=== PATIENT | female | born 1935 | race Caucasian/White ===

== ENCOUNTER 2020-08-30 22:50 | Inpatient (IN) | payer MEDICARE, OTHER ==
[~2020-08-30] VITALS: Ht 154.9 cm; Wt 86.4 kg
[2020-08-31 01:00] VITALS: BP 144/89
[2020-08-31] MEDS ORDERED: MAG HYDROX/AL HYDROX/SIMETH 30 ML UDC PO PRN (01:00)
[2020-08-31] MEDS ORDERED: MORPHINE SULFATE INJ 2 MG/ML DISP.SYRIN IV PRN (01:00)
[2020-08-31] MEDS ORDERED: Z GUARD REMEDY 2 OZ OINT TP PRN (01:00)
[2020-08-31] MEDS ORDERED: DEXTROSE 50%-WATER 50 ML DISP.SYRIN IV PRN (01:00)
[2020-08-31] MEDS ORDERED: ZOLPIDEM TARTRATE 5 MG TABLET PO PRN (01:00)
[2020-08-31] MEDS ORDERED: ONDANSETRON HCL/PF 4 MG/2 ML VIAL IVP PRN (01:00)
[2020-08-31] MEDS ORDERED: HYDROCODONE/APAP 5/325MG TABLET PO PRN (01:00)
[2020-08-31] MEDS ORDERED: ACETAMINOPHEN 325 MG TABLET PO PRN (01:00)
[2020-08-31] MEDS ORDERED: MAGNESIUM HYDROXIDE 30 ML UDC PO PRN (01:00)
--- NOTE | 2020-08-31 01:14 | NUR ---
PATIENT CAME FROM [facility]. BROUGHT BY THE AMBULANCE. PATIENT IS A/O X4. ON O2 AT 3L/MIN NASAL CANNULA. CALL LIGHT WITHIN REAch, instructed to call when OOB AND IF SHE NEEDED HELP, PATIENT VERBALIZED UNDERSTANDING. BED IN LOWEST AND LOCKED POSITION. BED ALARM ON. NO S/S OF DISTRESS NOTED. NO COMPLAIN OF PAIN.
--- NOTE | 2020-08-31 01:19 | NUR ---
PATIENT CAME AT 0054.
[2020-08-31] MEDS ORDERED: APIX2.5T PO (01:50)
[2020-08-31] MEDS ORDERED: HYDR-4303 PO (01:50)
[2020-08-31] MEDS ORDERED: AMIO200T5 PO (01:50)
[2020-08-31] MEDS ORDERED: FURO-144 PO (01:50)
[2020-08-31] MEDS ORDERED: ATOR40TA PO (01:50)
[2020-08-31] MEDS ORDERED: OLME1TAB19 PO (01:50)
[2020-08-31] MEDS ORDERED: EMPA25TA PO (01:50)
[2020-08-31] MEDS ORDERED: SACU1TAB PO (01:50)
[2020-08-31] MEDS ORDERED: METO25TA4 PO (01:50)
[2020-08-31 04:00] VITALS: BP_SYST 127; BP_SYST 144; BP_DIAS 61; BP_DIAS 89
[2020-08-31] MEDS: BLOOD SUGAR DIAGNOSTIC 1 EACH STRIP IN SCH ×4 (06:18→22:00)
--- NOTE | 2020-08-31 06:18 | NUR ---
blood sugar [id number], no insulin given.
--- NOTE | 2020-08-31 07:25 | NUR ---
RN OPENING NOTE PATIENT RECEIVED IN BED RESTING IN RIGHT LATERAL POSITION. PATIENT DENIES PAIN OR DISCOMFORT AT THIS TIME. RIGHT HAND #22 G PATENT AND INTACT. SAFETY PRECAUTIONS IMPLEMENTED, BED LOCKED IN LOWEST POSITION, SIDE RAILS UP X2, CALL LIGHT WITHIN REACH, BED ALARMS ON. WILL CONTINUE TO MONITOR AND PROVIDE CARE THROUGHOUT SHIFT.
[2020-08-31 08:00] VITALS: BP 110/60
[2020-08-31] MEDS ORDERED: CEFTRIAXONE 1 G in IV D5W 50 ML IV SCH (09:00)
[2020-08-31] MEDS ORDERED: FUROSEMIDE 40 MG/4 ML VIAL IV SCH (09:00)
[2020-08-31] MEDS: FUROSEMIDE 40 MG/4 ML VIAL IV SCH ×3 (10:30→18:17)
[2020-08-31] MEDS: APIXABAN 2.5 MG TABLET PO SCH ×2 (10:30→16:46)
[2020-08-31] MEDS: METOPROLOL SUCCINATE 25 MG TAB.SR.24H PO SCH (10:30)
[2020-08-31] MEDS ORDERED: ATORVASTATIN 40 MG TABLET PO SCH (10:30)
[2020-08-31] MEDS: AMIODARONE HCL 200 MG TABLET PO SCH (10:30)
--- NOTE | 2020-08-31 11:01 | NUR ---
Lasix 1030 am dose not administered because 9:00 am dose was give. Spoke with pharmacy and recommended to hold 1030 dose.
[2020-08-31 11:19] LABS: BASOPHILS % (AUTO) 0.7 % (0.0-2.0); EOSINOPHILS % (AUTO) 1.8 % (0.0-6.0); HEMATOCRIT 39 % (33-45); HEMOGLOBIN 12.5 g/dL (11.5-14.8); LYMPHOCYTES # (AUTO) 1.2 /CMM (0.8-4.8); LYMPHOCYTES % (AUTO) 17.3 % (20.0-44.0); MEAN CORPUSCULAR HGB CONC 32 g/dl (31.0-36.0); MEAN CORPUSCULAR VOLUME 87 fL (82-100); MONOCYTES # (AUTO) 0.6 /CMM (0.1-1.30); MONOCYTES % (AUTO) 7.9 % (2.0-12.0); NEUTROPHILS # (AUTO) 5.1 /CMM (1.8-8.9); NEUTROPHILS % (AUTO) 72.3 % (43.0-81.0); PLATELET COUNT (AUTO) 202 /CMM (150-450); RED BLOOD CELL COUNT(AUTO) 4.52 MIL/uL (4.0-5.2); WHITE BLOOD COUNT (AUTO) 7.1 K/uL (4.3-11.0)
[2020-08-31 12:00] VITALS: BP 101/54
[2020-08-31 13:03] LABS: CALCIUM, SERUM 9.1 mg/dL (8.5-10.1); CREATININE 1.3 mg/dL (0.6-1.3); POTASSIUM 3.4 mmol/L (3.5-5.1)
[2020-08-31 13:15] LABS: ALBUMIN 3.6 g/dL (3.4-5.0); BILIRUBIN,TOTAL 0.5 mg/dL (0.2-1.0); MAGNESIUM 1.9 mg/dL (1.8-2.4); PHOSPHORUS 4.1 mg/dL (2.5-4.9)
[2020-08-31 16:00] VITALS: BP 94/56
--- NOTE | 2020-08-31 19:10 | NUR ---
RN CLOSING NOTE PATIENT IN BED RESTING IN RIGHT LATERAL POSITION. PATIENT DENIES PAIN OR DISCOMFORT AT THIS TIME. RIGHT HAND #22 G PATENT AND INTACT. SAFETY PRECAUTIONS IMPLEMENTED, BED LOCKED IN LOWEST POSITION, SIDE RAILS UP X2, CALL LIGHT WITHIN REACH, BED ALARMS ON. WILL ENDORSE CARE CONTINUATION OF CARE UPCOMING SHIFT.
[2020-08-31 20:00] VITALS: BP 90/50
[2020-08-31] MEDS: ATORVASTATIN 40 MG TABLET PO SCH (21:28)
[2020-08-31] MEDS: INSULIN REGULAR, HUMAN 100 UNIT/ML 3 ML VIAL SQ PRN (21:34)
[2020-09-01] VITALS: BP 100/49
[2020-09-01 04:00] VITALS: BP 105/56
[2020-09-01 06:34] LABS: BASOPHILS % (AUTO) 0.7 % (0.0-2.0); EOSINOPHILS % (AUTO) 2.1 % (0.0-6.0); HEMATOCRIT 37 % (33-45); HEMOGLOBIN 11.8 g/dL (11.5-14.8); LYMPHOCYTES # (AUTO) 1.8 /CMM (0.8-4.8); LYMPHOCYTES % (AUTO) 28.3 % (20.0-44.0); MEAN CORPUSCULAR HGB CONC 32 g/dl (31.0-36.0); MEAN CORPUSCULAR VOLUME 87 fL (82-100); MONOCYTES # (AUTO) 0.6 /CMM (0.1-1.30); MONOCYTES % (AUTO) 9.9 % (2.0-12.0); NEUTROPHILS # (AUTO) 3.8 /CMM (1.8-8.9); PLATELET COUNT (AUTO) 196 /CMM (150-450); RED BLOOD CELL COUNT(AUTO) 4.22 MIL/uL (4.0-5.2); WHITE BLOOD COUNT (AUTO) 6.4 K/uL (4.3-11.0)
[2020-09-01 07:16] LABS: THYROID STIMULATING HORMONE 5.719 uIU/mL (0.358-3.74)
[2020-09-01 07:28] LABS: ALBUMIN 3.3 g/dL (3.4-5.0); BILIRUBIN,TOTAL 0.5 mg/dL (0.2-1.0); CALCIUM, SERUM 8.9 mg/dL (8.5-10.1); CREATININE 1.2 mg/dL (0.6-1.3); MAGNESIUM 2.1 mg/dL (1.8-2.4); PHOSPHORUS 4.7 mg/dL (2.5-4.9); POTASSIUM 3.1 mmol/L (3.5-5.1); TOTAL PROTEIN, SERUM 6.5 g/dL (6.4-8.2)
[2020-09-01] MEDS: BLOOD SUGAR DIAGNOSTIC 1 EACH STRIP IN SCH ×4 (07:33→21:31)
--- NOTE | 2020-09-01 07:56 | NUR ---
MS/RN OPENING NOTE RECEIVED PATIENT FROM GRINDING ROOM INSPECTOR NURSE. PATIENT IS ASLEEP IN BED, EASILY WOKEN UP. A/O X4, SWEDISH SPEAKING. PATIENT ON OXYGEN 3L/MIN, TOLERATING WELL, NO SOB NOTED, BREATHING EVEN, NON LABORED. SAFETY MEASURES IN PLACE, BED LOCKED AND IN LOWEST POSITION, CALL LIGHT WITHIN REACH. WILL CONTINUE TO MONITOR AND ENSURE SAFETY.
[2020-09-01 08:00] VITALS: BP 127/53
[2020-09-01] MEDS: POTASSIUM CHLORIDE 20 MEQ TAB.PRT.SR PO SCH ×2 (08:28→09:47)
[2020-09-01] MEDS: METOPROLOL SUCCINATE 25 MG TAB.SR.24H PO SCH (08:28)
[2020-09-01] MEDS: AMIODARONE HCL 200 MG TABLET PO SCH (08:29)
[2020-09-01] MEDS: APIXABAN 2.5 MG TABLET PO SCH ×2 (08:31→16:33)
[2020-09-01] MEDS ORDERED: POTASSIUM CHLORIDE 20 MEQ TAB.PRT.SR PO SCH (09:30)
[2020-09-01] MEDS: INSULIN REGULAR, HUMAN 100 UNIT/ML 3 ML VIAL SQ PRN ×2 (12:44→21:42)
[2020-09-01] MEDS: JARDIANCE 25 MG PO SCH (14:38)
[2020-09-01 16:00] VITALS: BP 101/50
[2020-09-01] MEDS: ENTRESTO PO SCH (16:35)
--- NOTE | 2020-09-01 19:22 | NUR ---
MS/RN CLOSING NOTE PATIENT IS ASLEEP IN BED, EASILY WOKEN UP. A/O X4, TOGOLESE SPEAKING. PATIENT ON OXYGEN 3L/MIN, TOLERATING WELL, NO SOB NOTED, BREATHING EVEN, NON LABORED. SAFETY MEASURES IN PLACE, BED LOCKED AND IN LOWEST POSITION, CALL LIGHT WITHIN REACH. ALL NEEDS MET THROUGHOUT THE SHIFT. WILL ENDORSE TO DEPUTY CLERK OF SUPERIOR COURT NURSE.
--- NOTE | 2020-09-01 19:55 | NUR ---
TELE/RN OPENING NOTE RECEIVED PATIENT SITTING UP IN BED WATCHING TV. AWAKE, ALERT AND ORIENTED X 3. ABLE TO MAKE NEEDS KNOWN. NO COMPLAINTS OF PAIN AT THIS TIME. IV ACCESS TO RIGHT HAND INTACT AND PATENT. TELE MONITOR READING AFIB CONTROLLED HR 80. CALL LIGHT WITHIN REACH. ASPIRATION, FALL AND SAFETY PRECAUTIONS MAINTAINED. WILL CONTINUE TO MONITOR.
[2020-09-01 20:00] VITALS: BP 99/57
[2020-09-01] MEDS: ATORVASTATIN 40 MG TABLET PO SCH (21:31)
[2020-09-02] VITALS: BP 116/70
[2020-09-02 04:00] VITALS: BP 119/71
[2020-09-02] MEDS: BLOOD SUGAR DIAGNOSTIC 1 EACH STRIP IN SCH ×4 (06:01→21:46)
--- NOTE | 2020-09-02 06:28 | NUR ---
TELE/RN CLOSING NOTE PATIENT CURRENTLY RESTING IN BED. AWAKE, ALERT AND ORIENTED X 3. ABLE TO MAKE NEEDS KNOWN. NO COMPLAINTS OF PAIN AT THIS TIME. TELE MONITOR READING AFIB 79. CONTINUES ON 3L O2 VIA NC WITH NO SIGNS OR SYMPTOMS OF RESPIRATORY DISTRESS NOTED. EKG AND CXR DONE THIS AM WITH PENDING RESULTS. BLOOD GLUCOSE LEVEL THIS AM WAS 114. CALL LIGHT WITHIN REACH. ASPIRATION, FALL AND SAFETY PRECAUTIONS MAINTAINED. WILL ENDORSE PLAN OF CARE TO ONCOMING SHIFT RN.
[2020-09-02 07:16] LABS: BASOPHILS % (AUTO) 0.7 % (0.0-2.0); EOSINOPHILS % (AUTO) 2.3 % (0.0-6.0); HEMATOCRIT 37 % (33-45); HEMOGLOBIN 11.9 g/dL (11.5-14.8); LYMPHOCYTES # (AUTO) 1.9 /CMM (0.8-4.8); MEAN CORPUSCULAR HGB CONC 32 g/dl (31.0-36.0); MEAN CORPUSCULAR VOLUME 88 fL (82-100); MONOCYTES # (AUTO) 0.6 /CMM (0.1-1.30); MONOCYTES % (AUTO) 9.2 % (2.0-12.0); NEUTROPHILS # (AUTO) 3.8 /CMM (1.8-8.9); NEUTROPHILS % (AUTO) 58.8 % (43.0-81.0); PLATELET COUNT (AUTO) 196 /CMM (150-450); RED BLOOD CELL COUNT(AUTO) 4.25 MIL/uL (4.0-5.2); WHITE BLOOD COUNT (AUTO) 6.5 K/uL (4.3-11.0)
[2020-09-02 07:31] LABS: ALBUMIN 3.4 g/dL (3.4-5.0); BILIRUBIN,TOTAL 0.7 mg/dL (0.2-1.0); CALCIUM, SERUM 9.2 mg/dL (8.5-10.1); MAGNESIUM 2.1 mg/dL (1.8-2.4); PHOSPHORUS 3.9 mg/dL (2.5-4.9); POTASSIUM 3.9 mmol/L (3.5-5.1); TOTAL PROTEIN, SERUM 6.5 g/dL (6.4-8.2)
--- NOTE | 2020-09-02 08:00 | NUR ---
RN OPENING NOTE PT IS AWAKE IN BED SITTING. A/O X3 AND SPEAKS LIMITED MARTINIQUAIS. NO COMPLAINT OF PAIN OR NAUSEA. CURRENTLY ON 3L NC WITH NO RESPIRATORY DISTRESS. O2 SAT >95%. AMBULATORY WITH BATHROOM PRIVILEGES. SKIN IS INTACT. NO EDEMA PRESENT. HL PRESENT ON R HANG 22G. SAFETY MEASURES IN PLACE. SIDE RAILS RAISED. BED LOWERED. CALL LIGHT WITHIN REACH. WILL CONTINUE TO MONITOR.
[2020-09-02 08:09] VITALS: BP 101/60
[2020-09-02] MEDS: AMIODARONE HCL 200 MG TABLET PO SCH (09:00)
[2020-09-02] MEDS: METOPROLOL SUCCINATE 25 MG TAB.SR.24H PO SCH (09:00)
[2020-09-02] MEDS: FUROSEMIDE 100 MG/10 ML VIAL IV SCH ×3 (09:51→17:04)
[2020-09-02] MEDS: ENTRESTO PO SCH ×2 (09:51→17:03)
[2020-09-02] MEDS: APIXABAN 2.5 MG TABLET PO SCH ×2 (10:06→17:13)
[2020-09-02] MEDS: JARDIANCE 25 MG PO SCH ×2 (10:34→17:03)
[2020-09-02] MEDS: INSULIN REGULAR, HUMAN 100 UNIT/ML 3 ML VIAL SQ PRN ×3 (12:25→21:47)
[2020-09-02 16:00] VITALS: BP 109/67
--- NOTE | 2020-09-02 18:48 | NUR ---
RN CLOSING NOTE PT IS AWAKE IN BED SITTING. A/O X3 AND SPEAKS LIMITED VINCENTIAN. NO COMPLAINT OF PAIN OR NAUSEA. CURRENTLY ON 3L NC WITH NO RESPIRATORY DISTRESS. O2 SAT >95%. AMBULATORY WITH BATHROOM PRIVILEGES. SKIN IS INTACT. NO EDEMA PRESENT. HL PRESENT ON R HANG 22G. ROUTINE MEDS GIVEN. SAFETY MEASURES IN PLACE. SIDE RAILS RAISED. BED LOWERED. CALL LIGHT WITHIN REACH. REPORT TO BE GIVEN TO NIGHT NURSE FOR MEGNA.
[2020-09-02 20:00] VITALS: BP 112/79
--- NOTE | 2020-09-02 20:14 | NUR ---
MS RN OPENING NOTE PATIENT SITTING IN CHAIR A/OX3; ABLE TO MAKE NEEDS KNOWN. ON O2 VIA N/C; TOLERATING WELL WITH NO SOB. IV TO RIGHT HAND #22G S/L; PATENT AND INTACT. DENIES ANY PAIN OR DISCOMFORT AT THIS TIME SAFETY MEASURES IN PLACE: BED IN LOWEST LOCKED POSITION, CALL LIGHT WITHIN EASY REACH, SIDE RAILS UP X2, BED ALARMS ON. PATIENT IS CALM AND MEDICALLY STABLE AT THIS TIME. WILL CONTINUE PATIENT'S PLAN OF CARE.
[2020-09-02] MEDS: ATORVASTATIN 40 MG TABLET PO SCH (21:46)
[2020-09-03 07:10] LABS: BASOPHILS % (AUTO) 0.7 % (0.0-2.0); EOSINOPHILS % (AUTO) 2.8 % (0.0-6.0); HEMATOCRIT 39 % (33-45); HEMOGLOBIN 12.6 g/dL (11.5-14.8); LYMPHOCYTES # (AUTO) 1.8 /CMM (0.8-4.8); LYMPHOCYTES % (AUTO) 32.6 % (20.0-44.0); MEAN CORPUSCULAR HGB CONC 32 g/dl (31.0-36.0); MEAN CORPUSCULAR VOLUME 87 fL (82-100); MONOCYTES # (AUTO) 0.5 /CMM (0.1-1.30); MONOCYTES % (AUTO) 8.9 % (2.0-12.0); NEUTROPHILS # (AUTO) 3.1 /CMM (1.8-8.9); PLATELET COUNT (AUTO) 207 /CMM (150-450); RED BLOOD CELL COUNT(AUTO) 4.51 MIL/uL (4.0-5.2); WHITE BLOOD COUNT (AUTO) 5.7 K/uL (4.3-11.0)
[2020-09-03] MEDS: BLOOD SUGAR DIAGNOSTIC 1 EACH STRIP IN SCH ×4 (07:37→22:00)
[2020-09-03] MEDS: INSULIN REGULAR, HUMAN 100 UNIT/ML 3 ML VIAL SQ PRN ×2 (07:37→11:44)
--- NOTE | 2020-09-03 07:38 | NUR ---
MS RN CLOSING NOTE PATIENT SITTING IN CHAIR A/OX3; ABLE TO MAKE NEEDS KNOWN. ON O2 VIA N/C; TOLERATING WELL WITH NO SOB. IV TO RIGHT HAND #22G S/L; PATENT AND INTACT. DENIES ANY PAIN OR DISCOMFORT AT THIS TIME SAFETY MEASURES IN PLACE: BED IN LOWEST LOCKED POSITION, CALL LIGHT WITHIN EASY REACH, SIDE RAILS UP X2, BED ALARMS ON. PATIENT IS CALM AND MEDICALLY STABLE AT THIS TIME. WILL ENDORSE PATIENT'S PLAN OF CARE TO ONCOMING MORNING RN.
--- NOTE | 2020-09-03 07:40 | NUR ---
GPS/RN OPENING NOTES RECEIVED PATIENT IS ON BED AWAKE ALERT AND ORIENTED X4. PATIENT IS ON 3L OXYGEN SATURATION 97%. PATIENT IN APPARENT RESPIRATORY DISTRESS NOTED. NO COMPLAINED OF PAIN AT THIS TIME. WILL CONTINUE TO MONITOR. Addendum: 09/03/20 at 0945 by TREVOR MICHELE RN ERROR
[2020-09-03 07:44] LABS: ALBUMIN 3.5 g/dL (3.4-5.0); BILIRUBIN,TOTAL 0.8 mg/dL (0.2-1.0); CALCIUM, SERUM 9.5 mg/dL (8.5-10.1); MAGNESIUM 2.2 mg/dL (1.8-2.4); PHOSPHORUS 5.1 mg/dL (2.5-4.9); POTASSIUM 3.5 mmol/L (3.5-5.1); TOTAL PROTEIN, SERUM 6.9 g/dL (6.4-8.2)
[2020-09-03 08:19] VITALS: BP 95/58
[2020-09-03] MEDS: APIXABAN 2.5 MG TABLET PO SCH ×2 (08:37→16:59)
[2020-09-03] MEDS: ENTRESTO PO SCH ×2 (08:38→16:57)
[2020-09-03] MEDS: METOPROLOL SUCCINATE 25 MG TAB.SR.24H PO SCH (08:41)
[2020-09-03] MEDS: AMIODARONE HCL 200 MG TABLET PO SCH (08:41)
--- NOTE | 2020-09-03 08:43 | NUR ---
MS/RN NOTES BP95/58 P 73 CORDARONE 200MG 1 TAB PO AND METOPROLOL 25MG 1 ANU PO WAS NOT ADMINISTERED. WILL CONTINUE TO MONITOR.
[2020-09-03] MEDS: POTASSIUM CHLORIDE 20 MEQ TAB.PRT.SR PO SCH ×3 (10:38→12:40)
[2020-09-03] MEDS: FUROSEMIDE 100 MG/10 ML VIAL IV SCH ×3 (10:38→17:45)
--- NOTE | 2020-09-03 10:59 | NUR ---
MS/RN NOTES TITRATE 3L OXYGEN TO 2 L OXYGEN SATURATION 95% PATIENT IN APPARENT RESPIRATORY DISTRESS NOTED. WILL CONTINUE TO MONITOR.
[2020-09-03 16:13] VITALS: BP 108/62
--- NOTE | 2020-09-03 18:50 | NUR ---
MS/R CLOSING NOTES PATIENT IS ON BED AWAKE ALERT AND ORIENTED X4. PATIENT IS ON ROOM AIR SATURATION 97%. PATIENT IN NO APPARENT RESPIRATORY DISTRESS NOTED. NO COMPLAINED OF PAIN NOTED AT THIS TIME. IV ACCESS AT RIGHT HAND # 22 G PATENT AND INTACT. SEEN AND EXAMINED BY MD WITH ORDERS MADE AND CARRIED OUT. ALL DUE MEDICATIONS WAS GIVEN. SAFETY PRECAUTIONS WAS IN PLACED. BED IN LOWEST POSITION AND LOCKED. CALL LIGHT WITH IN REACH. WILL ENDORSED TO TELEVISION DIRECTOR FOR MEGAN.
[2020-09-03 20:31] VITALS: BP 92/41
[2020-09-04] MEDS: ATORVASTATIN 40 MG TABLET PO SCH ×2 (00:46→22:14)
[2020-09-04] MEDS: INSULIN REGULAR, HUMAN 100 UNIT/ML 3 ML VIAL SQ PRN ×4 (00:46→22:13)
[2020-09-04] MEDS: BLOOD SUGAR DIAGNOSTIC 1 EACH STRIP IN SCH ×4 (06:34→22:08)
--- NOTE | 2020-09-04 06:35 | NUR ---
BLOOD SUGAR [id number], NO INSULIN COVERAGE NEEDED.
[2020-09-04 06:51] LABS: BASOPHILS % (AUTO) 0.7 % (0.0-2.0); EOSINOPHILS % (AUTO) 2.7 % (0.0-6.0); HEMATOCRIT 39 % (33-45); HEMOGLOBIN 12.7 g/dL (11.5-14.8); LYMPHOCYTES % (AUTO) 32.9 % (20.0-44.0); MEAN CORPUSCULAR HGB CONC 32 g/dl (31.0-36.0); MEAN CORPUSCULAR VOLUME 86 fL (82-100); MONOCYTES # (AUTO) 0.6 /CMM (0.1-1.30); MONOCYTES % (AUTO) 10.5 % (2.0-12.0); NEUTROPHILS # (AUTO) 3.3 /CMM (1.8-8.9); NEUTROPHILS % (AUTO) 53.2 % (43.0-81.0); PLATELET COUNT (AUTO) 209 /CMM (150-450); RED BLOOD CELL COUNT(AUTO) 4.55 MIL/uL (4.0-5.2); WHITE BLOOD COUNT (AUTO) 6.1 K/uL (4.3-11.0)
--- NOTE | 2020-09-04 07:46 | NUR ---
MS/RN OPENING NOTES RECEIVED PATIENT IS ON BED AWAKE ALERT AND ORIENTED X4. PATIENT IS ON 2L OXYGEN SATURATING WELL. PATIENT IN APPARENT RESPIRATORY DISTRESS NOTED. NO COMPLAINED OF PAIN AT THIS TIME. WILL CONTINUE TO MONITOR.
[2020-09-04 07:52] LABS: ALBUMIN 3.6 g/dL (3.4-5.0); BILIRUBIN,TOTAL 0.8 mg/dL (0.2-1.0); CALCIUM, SERUM 9.6 mg/dL (8.5-10.1); CREATININE 1.1 mg/dL (0.6-1.3); MAGNESIUM 2.2 mg/dL (1.8-2.4); PHOSPHORUS 4.8 mg/dL (2.5-4.9); POTASSIUM 3.4 mmol/L (3.5-5.1)
[2020-09-04 08:00] VITALS: BP 118/70
[2020-09-04] MEDS: JARDIANCE 25 MG PO SCH (08:44)
[2020-09-04] MEDS: ENTRESTO PO SCH ×2 (08:44→16:39)
[2020-09-04] MEDS: AMIODARONE HCL 200 MG TABLET PO SCH (08:45)
[2020-09-04] MEDS: METOPROLOL SUCCINATE 25 MG TAB.SR.24H PO SCH (08:45)
[2020-09-04] MEDS: APIXABAN 2.5 MG TABLET PO SCH ×2 (08:52→16:48)
[2020-09-04] MEDS ORDERED: BUMETANIDE INJ 8 MG in IV NS 0.9% 48 ML IV ONE (10:00)
[2020-09-04] MEDS: POTASSIUM CHLORIDE 20 MEQ TAB.PRT.SR PO SCH ×3 (10:04→12:01)
[2020-09-04 16:00] VITALS: BP 94/56
[2020-09-04 18:00] VITALS: BP 94/56
--- NOTE | 2020-09-04 19:14 | NUR ---
MS/RN CLOSING NOTES PATIENT IS ON BED AWAKE ALERT AND ORIENTED X4. PATIENT IS ON 2L OXYGEN SATURATION 96%. PATIENT IN NO APPARENT RESPIRATORY DISTRESS NOTED. NO COMPLAINED OF PAIN NOTED AT THIS TIME. IV ACCESS AT RIGHT HAND # 22 G PATENT AND INTACT. SEEN AND EXAMINED BY MD WITH ORDERS MADE AND CARRIED OUT. ALL DUE MEDICATIONS WAS GIVEN. SAFETY PRECAUTIONS WAS IN PLACED. BED IN LOWEST POSITION AND LOCKED. CALL LIGHT WITH IN REACH. WILL ENDORSED TO CANNERY WORKER FOR MEGAN.
--- NOTE | 2020-09-04 19:33 | NUR ---
RN NOTES PATIENT IS ON BED AWAKE ALERT AND ORIENTED X4. PATIENT IS ON 2L OXYGEN SATURATION 96%. PATIENT IN NO APPARENT RESPIRATORY DISTRESS NOTED. NO COMPLAINED OF PAIN NOTED AT THIS TIME. IV ACCESS AT RIGHT HAND # 22 G PATENT AND INTACT. SAFETY PRECAUTIONS WAS IN PLACED. BED IN LOWEST POSITION AND LOCKED. CALL LIGHT WITH IN REACH. WILL CONTINUE TO MONITOR.
[2020-09-04 20:00] VITALS: BP 102/60
[2020-09-05] MEDS: INSULIN REGULAR, HUMAN 100 UNIT/ML 3 ML VIAL SQ PRN ×3 (06:46→22:26)
[2020-09-05 06:55] LABS: BASOPHILS % (AUTO) 0.7 % (0.0-2.0); EOSINOPHILS % (AUTO) 2.1 % (0.0-6.0); HEMATOCRIT 43 % (33-45); HEMOGLOBIN 13.6 g/dL (11.5-14.8); LYMPHOCYTES # (AUTO) 2.4 /CMM (0.8-4.8); LYMPHOCYTES % (AUTO) 35.5 % (20.0-44.0); MEAN CORPUSCULAR HGB CONC 32 g/dl (31.0-36.0); MEAN CORPUSCULAR VOLUME 87 fL (82-100); MONOCYTES # (AUTO) 0.7 /CMM (0.1-1.30); MONOCYTES % (AUTO) 10.4 % (2.0-12.0); NEUTROPHILS # (AUTO) 3.4 /CMM (1.8-8.9); NEUTROPHILS % (AUTO) 51.3 % (43.0-81.0); PLATELET COUNT (AUTO) 222 /CMM (150-450); WHITE BLOOD COUNT (AUTO) 6.7 K/uL (4.3-11.0)
--- NOTE | 2020-09-05 06:57 | NUR ---
RN NOTES PATIENT IS ON BED AWAKE ALERT AND ORIENTED X4. PATIENT IS ON 2L OXYGEN SATURATION 96%. PATIENT IN NO APPARENT RESPIRATORY DISTRESS NOTED. NO COMPLAINED OF PAIN NOTED AT THIS TIME. IV ACCESS AT RIGHT HAND # 22 G PATENT AND INTACT. SAFETY PRECAUTIONS WAS IN PLACED. BED IN LOWEST POSITION AND LOCKED. CALL LIGHT WITH IN REACH. WILL ENDORSE CARE TO DAY SHIFT NURSE.
[2020-09-05 07:13] LABS: ALBUMIN 3.7 g/dL (3.4-5.0); BILIRUBIN,TOTAL 0.7 mg/dL (0.2-1.0); CALCIUM, SERUM 9.8 mg/dL (8.5-10.1); CREATININE 1.2 mg/dL (0.6-1.3); MAGNESIUM 2.3 mg/dL (1.8-2.4); POTASSIUM 3.7 mmol/L (3.5-5.1); TOTAL PROTEIN, SERUM 7.3 g/dL (6.4-8.2)
--- NOTE | 2020-09-05 08:04 | NUR ---
MS RN OPENING NOTE PATIENT IS IN BED RESTING, PATIENT IS IN NO ACUTE DISTRESS. PATIENT IS ON 2L OXYGEN ON NC, TOLERATING WELL. NO SOB NOTE. PATIENT IS ON DAILY WEIGHT MEASURES. SAFETY PRECAUTIONS ARE ON, BED IS LOCKED AND IN THE LOWEST POSITION WITH SIDE RAILS UP. CALL LIGHT WITHIN REACH. WILL CONTINUE TO MONITOR CLOSELY THROUGHOUT THE SHIFT.
[2020-09-05] MEDS: BLOOD SUGAR DIAGNOSTIC 1 EACH STRIP IN SCH ×4 (08:55→22:24)
[2020-09-05] MEDS: JARDIANCE 25 MG PO SCH (09:08)
[2020-09-05] MEDS: AMIODARONE HCL 200 MG TABLET PO SCH (09:09)
[2020-09-05] MEDS: ENTRESTO PO SCH ×2 (09:09→17:29)
[2020-09-05] MEDS: METOPROLOL SUCCINATE 25 MG TAB.SR.24H PO SCH (09:10)
[2020-09-05] MEDS: APIXABAN 2.5 MG TABLET PO SCH ×2 (09:11→17:33)
[2020-09-05] MEDS: POTASSIUM CHLORIDE 20 MEQ TAB.PRT.SR PO SCH (10:08)
[2020-09-05] MEDS: FUROSEMIDE 40 MG TABLET PO SCH (10:09)
[2020-09-05] MEDS: CARVEDILOL 6.25 MG TABLET PO SCH ×2 (10:09→21:00)
[2020-09-05] MEDS ORDERED: IV NS 0.9% 250 ML IV ONE (10:50)
[2020-09-05] MEDS ORDERED: CT SWABBABLE VALVE TRANS SET 1 EA INFUS.SET MC ONE (10:50)
[2020-09-05] MEDS ORDERED: IOHEXOL-350 100 ML VIAL IV ONE ×2 (10:50→11:12)
[2020-09-05] MEDS ORDERED: METOPROLOL TARTRATE INJ 5 MG/5 ML AMPUL ONE (10:50)
[2020-09-05] MEDS ORDERED: METOPROLOL TARTRATE 50 MG TABLET PO PRN (11:00)
[2020-09-05] MEDS ORDERED: NITROGLYCERIN 0.4 MG/TAB BOTTLE SL ONE (11:00)
[2020-09-05] MEDS ORDERED: METOPROLOL TARTRATE INJ 5 MG/5 ML AMPUL IVP PRN (12:00)
--- NOTE | 2020-09-05 19:40 | NUR ---
RN NOTES PATIENT IS IN BED RESTING, PATIENT IS IN NO ACUTE DISTRESS. PATIENT IS ON 2L OXYGEN ON NC, TOLERATING WELL. NO SOB NOTE. PATIENT IS ON DAILY WEIGHT MEASURES AND STRICT I&O. SAFETY PRECAUTIONS ARE ON, BED IS LOCKED AND IN THE LOWEST POSITION WITH SIDE RAILS UP. ALL NEEDS AT THIS TIME. CALL LIGHT WITHIN REACH. WILL CONTINUE TO MONITOR CLOSELY THROUGHOUT THE SHIFT.
--- NOTE | 2020-09-05 19:44 | NUR ---
MS RN CLOSING NOTE PATIENT IS IN BED RESTING, PATIENT IS IN NO ACUTE DISTRESS. PATIENT IS ON 2L OXYGEN ON NC, TOLERATING WELL. NO SOB NOTE. PATIENT IS ON DAILY WEIGHT MEASURES. SAFETY PRECAUTIONS ARE ON, BED IS LOCKED AND IN THE LOWEST POSITION WITH SIDE RAILS UP. CALL LIGHT WITHIN REACH. ENDORSE PATIENT TO FILAMENT MAKER NURSE FOR MEGAN.
[2020-09-05 20:00] VITALS: BP 94/49
--- NOTE | 2020-09-05 21:08 | NUR ---
RN NOTES COREG HELD DUE TO LOW SBP 94/58 WILL CONTINUE TO MONITOR.
[2020-09-05] MEDS: ATORVASTATIN 40 MG TABLET PO SCH (22:29)
[2020-09-06] MEDS: BLOOD SUGAR DIAGNOSTIC 1 EACH STRIP IN SCH ×2 (06:31→12:16)
[2020-09-06] MEDS: INSULIN REGULAR, HUMAN 100 UNIT/ML 3 ML VIAL SQ PRN ×2 (06:33→12:28)
--- NOTE | 2020-09-06 07:00 | NUR ---
RN NOTES PATIENT IS IN BED RESTING, PATIENT IS IN NO ACUTE DISTRESS. PATIENT IS ON 2L OXYGEN ON NC, TOLERATING WELL. NO SOB NOTE. PATIENT IS ON DAILY WEIGHT MEASURES AND STRICT I&O. SAFETY PRECAUTIONS ARE ON, BED IS LOCKED AND IN THE LOWEST POSITION WITH SIDE RAILS UP. ALL NEEDS AT THIS TIME. CALL LIGHT WITHIN REACH. WILL ENDORSE CARE TO DAY SHIFT NURSE.
--- NOTE | 2020-09-06 07:38 | NUR ---
MS RN OPENING NOTES RECEIVED PATIENT IN BED, AWAKE. ROMANSH SPEAKING BUT UNDERSTANDS SOME ROMANIAN. NO PAIN OR DISTRESS NOTED. PATIENT IS ON 2L OXYGEN ON NC, TOLERATING WELL. NO SOB NOTED. PATIENT IS ON DAILY WEIGHT MEASURES AND STRICT I&O. SAFETY PRECAUTIONS IMPLEMENTED, BED IS LOCKED AND IN THE LOWEST POSITION, SIDE RAILS X2. CALL LIGHT WITHIN REACH. WILL CONTINUE TO MONITOR.
[2020-09-06 08:00] VITALS: BP 103/58
[2020-09-06] MEDS: METOPROLOL SUCCINATE 25 MG TAB.SR.24H PO SCH (09:00)
[2020-09-06] MEDS: CARVEDILOL 6.25 MG TABLET PO SCH (09:00)
--- NOTE | 2020-09-06 09:17 | NUR ---
RN NOTE HELD COREG AND TOPROL-XL. BP TOO LOW @ 103/58
[2020-09-06 09:18] VITALS: BP 103/58
[2020-09-06] MEDS: JARDIANCE 25 MG PO SCH (09:18)
[2020-09-06] MEDS: FUROSEMIDE 40 MG TABLET PO SCH (09:18)
[2020-09-06] MEDS: AMIODARONE HCL 200 MG TABLET PO SCH (09:18)
[2020-09-06] MEDS: ENTRESTO PO SCH (09:18)
[2020-09-06] MEDS: POTASSIUM CHLORIDE 20 MEQ TAB.PRT.SR PO SCH (09:19)
[2020-09-06] MEDS: APIXABAN 2.5 MG TABLET PO SCH (09:23)
[2020-09-06] MEDS ORDERED: POTA20TA83 PO (11:28)
[2020-09-06] MEDS ORDERED: FURO-144 PO (11:28)
--- NOTE | 2020-09-06 15:53 | NUR ---
BIAS CUTTER NOTES PT DISCHARGED HOME IN STABLE CONDITION TO SON. A/O X4. NO PAIN OR DISTRESS NOTED. IV ACCESS ON R HAND REMOVED, DRY PRESSURE DRESSING APPLIED TO SITE. EDUCATION MATERIALS AND EXITCARE GIVEN TO PT AND VERBALIZED UNDERSTANDING. PT LEFT UNIT VIA WHEELCHAIR ACCOMPANIED BY MYSELF @ 9690. AND CHARGE NURSE AWARE OF DISCHARGE.
== END 2020-09-06 15:38 | disposition home or self-care (01) | DRG 291 ==
LOC: TELE 08-31 00:42 → MED 09-02 08:01
PROVIDERS: ADMIT Nurse Practitioner Acute Care; ATTEND Nurse Practitioner Family
DX: I13.0 Hypertensive heart and chronic kidney disease with heart failure and stage 1 through stage 4 chronic kidney disease, or unspecified chronic kidney disease (principal); I50.23 Acute on chronic systolic (congestive) heart failure; N17.0 Acute kidney failure with tubular necrosis; I48.20 Chronic atrial fibrillation, unspecified; D68.69 Other thrombophilia; I25.10 Atherosclerotic heart disease of native coronary artery without angina pectoris; E03.9 Hypothyroidism, unspecified; E78.5 Hyperlipidemia, unspecified; E87.6 Hypokalemia; Z79.01 Long term (current) use of anticoagulants; Z95.1 Presence of aortocoronary bypass graft; E11.22 Type 2 diabetes mellitus with diabetic chronic kidney disease; N13.9 Obstructive and reflux uropathy, unspecified; E11.65 Type 2 diabetes mellitus with hyperglycemia; E66.01 Morbid (severe) obesity due to excess calories; Z68.36 Body mass index [BMI] 36.0-36.9, adult; I08.0 Rheumatic disorders of both mitral and aortic valves; I27.20 Pulmonary hypertension, unspecified; N18.9 Chronic kidney disease, unspecified; Z79.4 Long term (current) use of insulin
CPT/HCPCS: 36415; 71045-TC; 75574; 80048-TC; 80053-TC; 80061-TC; 82962-TC; 83735-TC; 84100-TC; 84439-TC; 84443-TC; 84484-TC; 85025-TC; 87081-TC; 93307-TC; 94799-TC; G0378; J0696; J1815; J1940; J3490; J7050; J7060; Q9967

== ENCOUNTER 2021-11-23 19:21 | Inpatient (IN) | payer MEDICARE, OTHER ==
[~2021-11-23] VITALS: Ht 149.9 cm; Wt 80.7 kg
[~2021-11-23 19:21] MED LIST: AMIO200T5 PO; APIX2.5T PO; ATOR40TA PO; EMPA25TA PO; FURO-144 PO; HYDR-4303 PO; METO25TA4 PO; OLME1TAB19 PO; POTA20TA83 PO; SACU1TAB PO
--- NOTE | 2021-11-23 19:25 | NUR ---
BIB DAUGHTER FOR C/O WORSENING SOB X 5 DAYS. AMBULATORY, PLACED ON BED, AAOX4, DYSPNEIC RR-28 SATURATING AT 95%. SEEN AND EXAMINED BY DR HUNT.
--- NOTE | 2021-11-23 19:45 | NUR ---
BLOOD DRAWN AND SENT TO LAB
--- NOTE | 2021-11-23 19:51 | NUR ---
INSECT CONTROL INSPECTOR AT PT'S BEDSIDE
[2021-11-23 20:06] LABS: CALCIUM, SERUM 8.8 mg/dL (8.5-10.1); CARBON DIOXIDE 29 mmol/L (21-32); CHLORIDE 105 mmol/L (98-107); CREATININE 1.4 mg/dL (0.6-1.3); GLUCOSE 140 mg/dL (74-106); POTASSIUM 4.9 mmol/L (3.5-5.1); SODIUM SERUM 139 mmol/L (136-145); UREA NITROGEN, BLOOD 22 mg/dL (7-18)
--- NOTE | 2021-11-23 20:18 | NUR ---
SWAB FOR COVID19 SENT TO LAB
[2021-11-23 20:19] LABS: ALANINE AMINOTRANSFERASE 30 U/L (12-78); ALKALINE PHOSPHATASE 59 U/L (46-116); ASPARTATE AMINOTRANSFERASE 34 U/L (15-37); BILIRUBIN,DIRECT 0.2 mg/dL (0.0-0.2); BILIRUBIN,TOTAL 0.5 mg/dL (0.2-1.0); TOTAL PROTEIN, SERUM 7.4 g/dL (6.4-8.2)
[2021-11-23 20:23] LABS: BASOPHILS % (AUTO) 0.9 % (0.0-2.0); EOSINOPHILS % (AUTO) 2.9 % (0.0-6.0); HEMATOCRIT 35 % (33-45); HEMOGLOBIN 11.3 g/dL (11.5-14.8); LYMPHOCYTES % (AUTO) 20.3 % (20.0-44.0); MEAN CORPUSCULAR HGB CONC 33 g/dl (31.0-36.0); MEAN CORPUSCULAR VOLUME 81 fL (82-100); MONOCYTES # (AUTO) 0.4 K/uL (0.1-1.30); MONOCYTES % (AUTO) 8.3 % (2.0-12.0); NEUTROPHILS # (AUTO) 3.3 K/uL (1.8-8.9); NEUTROPHILS % (AUTO) 67.6 % (43.0-81.0); PLATELET COUNT (AUTO) 185 K/uL (150-450); RED BLOOD CELL COUNT(AUTO) 4.27 MIL/uL (4.0-5.2); WHITE BLOOD COUNT (AUTO) 4.8 K/uL (4.3-11.0)
[2021-11-23] MEDS ORDERED: FUROSEMIDE 40 MG/4 ML VIAL ONE (20:29)
[2021-11-23] MEDS ORDERED: FUROSEMIDE 40 MG/4 ML VIAL IV ONE (20:30)
[2021-11-23] MEDS ORDERED: ASPIRIN EC 81 MG TABLET.DR PO ONE ×2 (20:30)
[2021-11-23] MEDS ORDERED: SITA1TAB2 PO (20:40)
[2021-11-23] MEDS ORDERED: METO-357 PO (20:40)
[2021-11-23] MEDS ORDERED: TRAZ-182 PO (20:40)
[2021-11-23] MEDS ORDERED: ASPI-1169 PO (20:40)
[2021-11-23] MEDS ORDERED: MAGN400T8 PO (20:40)
[2021-11-23] MEDS ORDERED: ROSU10TA2 PO (20:40)
[2021-11-23] MEDS ORDERED: SACU1TAB PO (20:40)
[2021-11-23] MEDS ORDERED: SPIR50TA5 PO (20:40)
[2021-11-23] MEDS ORDERED: CLOP75TA15 PO (20:40)
--- NOTE | 2021-11-23 21:05 | NUR ---
PT AMBULATORY TO RESTROOM WITH ASSISTANCE. ADLS DONE.
--- NOTE | 2021-11-23 21:22 | NUR ---
DR. HUNT ON PHONECALL WITH DR. HESS REGARDING ADMISSION
[2021-11-23] MEDS: ASPIRIN 81 MG TAB.CHEW PO SCH (22:00)
[2021-11-23] MEDS ORDERED: SPIRONOLACTONE 25 MG TABLET PO SCH (22:00)
[2021-11-23] MEDS ORDERED: ALBUTEROL FS 2.5 MG/0.5 ML VIAL.NEB NEB PRN (22:00)
[2021-11-23] MEDS ORDERED: *INSULIN REGULAR(HUMULIN R)HUM 100 UNIT/ML VIAL SQ PRN (22:00)
[2021-11-23] MEDS ORDERED: INSULIN REGULAR, HUMAN 100 UNIT/ML 3 ML VIAL SQ PRN (22:00)
[2021-11-23] MEDS ORDERED: MAG HYDROX/AL HYDROX/SIMETH 30 ML UDC PO PRN (22:00)
[2021-11-23] MEDS ORDERED: MORPHINE SULFATE INJ 2 MG/ML DISP.SYRIN IV PRN (22:00)
[2021-11-23] MEDS ORDERED: DEXTROSE 50%-WATER 50 ML DISP.SYRIN IV PRN (22:00)
[2021-11-23] MEDS ORDERED: ONDANSETRON HCL/PF 4 MG/2 ML VIAL IVP PRN (22:00)
[2021-11-23] MEDS ORDERED: Medication Not On Formulary EA (Rosuvastatin Calcium (Crestor) 10 MG) PO SCH (22:00)
--- NOTE | 2021-11-23 22:05 | NUR ---
ASSIGNED TO 113-1 Addendum: 11/23/21 at 2206 by SAMYP ASSIGNED TO 315-1
--- NOTE | 2021-11-23 22:20 | NUR ---
GETACHEW (SON IN [employer]) [phone], TRENA (DAUGHTER) [phone]
--- NOTE | 2021-11-23 22:25 | NUR ---
REPORT GIVEN TO JOESPH RN 315 FOR MEGAN
--- NOTE | 2021-11-23 22:25 | NUR ---
Noble saunders in [facility] - 11/23/21 at 2236 by DAVID REPORT GIVEN TO JOESPH KRUSE MEGAN
--- NOTE | 2021-11-23 22:38 | NUR ---
DR. HESS AT PT'S BEDSIDE
[2021-11-23 22:51] VITALS: BP 151/77
--- NOTE | 2021-11-23 22:51 | NUR ---
RN ADMITTING NOTE PATIENT BROUGHT FROM ER FOR CHF, PATIENT IS A/O X 4 SAMMARINESE SPEAKING. PATIENT IS ABLE TO MAKE NEEDS KNOWN. PATIENT'S TELE MONITOR READS SR 70 WITH 1ST DEGREE BLOCK. PATIENT IS ABLE TO AMBULATE STEADILY WITHOUT ASSISTIVE DEVICE AND ASSISTANCE, ALTHOUGH PATIENT WAS FEELING DIZZY. PATIENT'S SKIN ASSESSED AND SKIN IS INTACT. PATIENT HAS A RAC 20 G SALINE LOCKED ONLY, FLUSHING WELL. PATIENT DOES NOT REPORT ANY PAIN/CHEST PAIN AT THIS TIME. ORIENTED PATIENT TO THE ROOM, RN, MARCY. SAFETY MEASURES IN PLACE: BED LOCKED AND IN LOWEST POSITION, CALL LIGHT WITHIN REACH, SIDE RAILS UP. WILL MONITOR PATIENT CLOSELY.
[2021-11-23] MEDS: BLOOD SUGAR DIAGNOSTIC 1 EACH STRIP VI SCH (23:28)
[2021-11-23] MEDS: TRAZODONE 50 MG TABLET PO SCH (23:28)
[2021-11-23] MEDS: CLOPIDOGREL BISULFATE 75 MG TABLET PO SCH (23:28)
--- NOTE | 2021-11-23 23:50 | NUR ---
RN NOTE BS 84 MG/DL, NO COVERAGE GIVEN. PATIENT GIVEN TWO ORANGE JUICES, WILL MONITOR FOR HYPO/HYPERGLYCEMIA.
[2021-11-24] VITALS: BP 141/78
[2021-11-24] MEDS ORDERED: IPRATROPIUM/ALBUTEROL INHALER IH SCH
[2021-11-24] MEDS: IPRATROPIUM NEB FS 0.5 MG/2.5 ML AMPUL.NEB IH SCH ×4 (01:30→19:49)
[2021-11-24] MEDS: ALBUTEROL FS 2.5 MG/0.5 ML VIAL.NEB NEB SCH ×4 (01:30→19:49)
[2021-11-24 04:00] VITALS: BP 108/62
[2021-11-24 06:28] LABS: BASOPHILS % (AUTO) 0.9 % (0.0-2.0); HEMATOCRIT 30 % (33-45); LYMPHOCYTES # (AUTO) 1.5 K/uL (0.8-4.8); LYMPHOCYTES % (AUTO) 31.6 % (20.0-44.0); MEAN CORPUSCULAR HGB CONC 33 g/dl (31.0-36.0); MEAN CORPUSCULAR VOLUME 82 fL (82-100); MONOCYTES # (AUTO) 0.5 K/uL (0.1-1.30); MONOCYTES % (AUTO) 9.7 % (2.0-12.0); NEUTROPHILS # (AUTO) 2.5 K/uL (1.8-8.9); NEUTROPHILS % (AUTO) 53.8 % (43.0-81.0); PLATELET COUNT (AUTO) 172 K/uL (150-450); RED BLOOD CELL COUNT(AUTO) 3.68 MIL/uL (4.0-5.2); WHITE BLOOD COUNT (AUTO) 4.7 K/uL (4.3-11.0)
[2021-11-24 06:30] LABS: ALBUMIN 3.4 g/dL (3.4-5.0); BILIRUBIN,TOTAL 0.4 mg/dL (0.2-1.0); CALCIUM, SERUM 8.8 mg/dL (8.5-10.1); CREATININE 1.2 mg/dL (0.6-1.3); MAGNESIUM 2.2 mg/dL (1.8-2.4); PHOSPHORUS 4.5 mg/dL (2.5-4.9); POTASSIUM 4.1 mmol/L (3.5-5.1); TOTAL PROTEIN, SERUM 6.3 g/dL (6.4-8.2)
--- NOTE | 2021-11-24 07:23 | NUR ---
RN CLOSING NOTE PATIENT IN BED, A/O X 4 YAKUT SPEAKING. PATIENT IS ABLE TO MAKE NEEDS KNOWN. PATIENT'S TELE MONITOR READS SR 81 WITH 1ST DEGREE BLOCK. PATIENT DID NOT HAVE ANY CHEST PAIN, MILD SOB NOTED ONLY WITH SEVERE EXERTION. PATIENT HAS A RAC 20 G SALINE LOCKED ONLY, FLUSHING WELL. SAFETY MEASURES IN PLACE: BED LOCKED AND IN LOWEST POSITION, CALL LIGHT WITHIN REACH, SIDE RAILS UP. ALL NEEDS MET AND ATTENDED, ALL ORDERS CARRIED OUT. WILL ENDORSE TO DAY SHIFT RN FOR MEGAN.
[2021-11-24] MEDS: BLOOD SUGAR DIAGNOSTIC 1 EACH STRIP VI SCH ×4 (07:41→22:16)
--- NOTE | 2021-11-24 07:44 | NUR ---
RN OPENING NOTE PATIENT AWAKE IN BED RESTING, A/O X3. NO S/S OF PAIN NOTED AT THIS TIME. ON ROOM AIR, NO DISTRESS OR SHORTNESS OF BREATH NOTED. IV ACCESS RAC #20G, INTACT, PATENT AND FLUSHING WELL. PATIENT WITH EXTERNAL MICROFILMING DOCUMENT PREPARER WITH CURRENT READING OF SR, 1ST DEGREE BLOCK AND HR OF 80, NO CARDIAC DISTRESS NOTED. FALL AND SAFETY MEASURES IN PLACE, BED ALARM ON BED IN LOW AND LOCK POSITION, CALL LIGHT AND TABLE WITHIN EASY REACH, SIDE RAILS UP X2. WILL CONTINUE TO MONITOR.
[2021-11-24] MEDS: METOPROLOL SUCCINATE 50 MG TAB.SR.24H PO SCH (08:51)
[2021-11-24] MEDS: EMPAGLIFLOZIN 25 MG TABLET PO SCH (08:51)
[2021-11-24] MEDS: POTASSIUM CHLORIDE 20 MEQ TAB.PRT.SR PO SCH (08:51)
[2021-11-24] MEDS: MAGNESIUM OXIDE 400 MG TABLET PO SCH ×2 (08:51→17:25)
[2021-11-24] MEDS ORDERED: FUROSEMIDE 40 MG/4 ML VIAL IV SCH (09:00)
[2021-11-24] MEDS: FUROSEMIDE 40 MG/4 ML VIAL IV SCH ×3 (12:59→22:12)
--- NOTE | 2021-11-24 18:54 | NUR ---
RN CLOSING NOTE PATIENT AWAKE IN BED RESTING, A/O X3. NO S/S OF PAIN NOTED AT THIS TIME. ON ROOM AIR, NO DISTRESS OR SHORTNESS OF BREATH NOTED. IV ACCESS RAC #20G-SL, INTACT, PATENT AND FLUSHING WELL. PATIENT WITH EXTERNAL GROUP INSURANCE SPECIAL AGENT WITH CURRENT READING OF SR AND HR OF 61, NO CARDIAC DISTRESS NOTED. ALL SCHEDULE MEDICATIONS ADMINISTERED. FALL AND SAFETY MEASURES IN PLACE, BED ALARM ON BED IN LOW AND LOCK POSITION, CALL LIGHT AND TABLE WITHIN EASY REACH, SIDE RAILS UP X2. WILL ENDORSE TO POLLUTION CONTROL ENGINEER.
--- NOTE | 2021-11-24 19:25 | NUR ---
RN NOTE PT AWAKE IN ROOM, SITTING UP IN CHAIR, WATCHING TV. A/OX3. DENIES ANY PAIN AT THIS TIME. RESPIRATIONS EVEN/UNLABORED. IV SITE R-AC #20G INTACT/PATENT/FLUSHES WELL. PT AMBULATES WITH FWW WITH SLOW STEADY GAIT. ON TELE MONITOR, READING SR. PT IN NO ACUTE DISTRESS. SAFETY MEASURES IN PLACE, CALL LIGHT WITHIN REACH. WILL CONT TO MONITOR.
[2021-11-24 20:00] VITALS: BP 105/63
[2021-11-24] MEDS: CLOPIDOGREL BISULFATE 75 MG TABLET PO SCH (21:53)
[2021-11-24] MEDS: ATORVASTATIN 40 MG TABLET PO SCH (21:53)
[2021-11-24] MEDS: TRAZODONE 50 MG TABLET PO SCH (21:53)
[2021-11-24] MEDS: ASPIRIN 81 MG TAB.CHEW PO SCH (21:53)
[2021-11-25] VITALS: BP 116/63
[2021-11-25] MEDS: IPRATROPIUM NEB FS 0.5 MG/2.5 ML AMPUL.NEB IH SCH ×4 (01:45→20:30)
[2021-11-25] MEDS: ALBUTEROL FS 2.5 MG/0.5 ML VIAL.NEB NEB SCH ×4 (01:45→20:30)
[2021-11-25 04:00] VITALS: BP 111/46
[2021-11-25] MEDS: BLOOD SUGAR DIAGNOSTIC 1 EACH STRIP VI SCH ×4 (06:33→21:08)
[2021-11-25 06:35] LABS: EOSINOPHILS % (AUTO) 4.5 % (0.0-6.0); HEMATOCRIT 33 % (33-45); HEMOGLOBIN 10.6 g/dL (11.5-14.8); LYMPHOCYTES # (AUTO) 1.5 K/uL (0.8-4.8); LYMPHOCYTES % (AUTO) 31.5 % (20.0-44.0); MEAN CORPUSCULAR HGB CONC 32 g/dl (31.0-36.0); MEAN CORPUSCULAR VOLUME 82 fL (82-100); MONOCYTES # (AUTO) 0.6 K/uL (0.1-1.30); MONOCYTES % (AUTO) 11.8 % (2.0-12.0); NEUTROPHILS # (AUTO) 2.4 K/uL (1.8-8.9); NEUTROPHILS % (AUTO) 51.2 % (43.0-81.0); PLATELET COUNT (AUTO) 184 K/uL (150-450); RED BLOOD CELL COUNT(AUTO) 4.02 MIL/uL (4.0-5.2); WHITE BLOOD COUNT (AUTO) 4.8 K/uL (4.3-11.0)
[2021-11-25 06:48] LABS: CALCIUM, SERUM 9.1 mg/dL (8.5-10.1); CARBON DIOXIDE 30 mmol/L (21-32); CHLORIDE 105 mmol/L (98-107); CREATININE 1.4 mg/dL (0.6-1.3); GLUCOSE 93 mg/dL (74-106); MAGNESIUM 2.2 mg/dL (1.8-2.4); PHOSPHORUS 5.5 mg/dL (2.5-4.9); POTASSIUM 3.8 mmol/L (3.5-5.1); SODIUM SERUM 145 mmol/L (136-145); UREA NITROGEN, BLOOD 25 mg/dL (7-18)
--- NOTE | 2021-11-25 07:02 | NUR ---
RN NOTE PT RESTING IN BED, EASILY AROUSABLE TO STIMULI. DENIES ANY PAIN. RESPIRATIONS EVEN/UNLABORED. TELE MONITOR READING SB, HR 55, WITH 1ST DEGREE AV BLOCK. PT SLEPT WELL DURING THE NIGHT. NO ACUTE DISTRESS. SAFETY MEASURES MAINTAINED.
--- NOTE | 2021-11-25 08:05 | NUR ---
ENTRY ENGINEER OPENING NOTE Patient in bed, asleep. A/O x 3, Tajik speaking. On room air, breathing evenly and unlabored. No SOB or s/s of distress noted. IV access on RAC #20 SL, intact and patent. On tele monitoring showing sinus bradycardia, HR on the 50's. Safety precautions in place: bed in low, locked position; siderails up x 2; call light within reach. Will continue to monitor.
[2021-11-25] MEDS: METOPROLOL SUCCINATE 50 MG TAB.SR.24H PO SCH (08:44)
[2021-11-25] MEDS: FUROSEMIDE 100 MG/10 ML VIAL IV SCH ×3 (08:44→16:04)
[2021-11-25] MEDS: POTASSIUM CHLORIDE 20 MEQ TAB.PRT.SR PO SCH (08:44)
[2021-11-25] MEDS: MAGNESIUM OXIDE 400 MG TABLET PO SCH ×2 (08:44→16:04)
[2021-11-25] MEDS: EMPAGLIFLOZIN 25 MG TABLET PO SCH (08:44)
[2021-11-25] MEDS: MUPIROCIN OINT 2% 22 GM TUBE NS SCH ×2 (10:15→20:55)
[2021-11-25 11:22] LABS: CREATININE, URINE 18.9 MG/DL (30.0-125.0)
[2021-11-25 11:26] LABS: BILIRUBIN,URINE NEGATIVE (NEGATIVE); COLOR,URINE YELLOW (YELLOW); LEUKOCYTE ESTERASE ,URINE NEGATIVE (NEGATIVE); NITRITE, URINE NEGATIVE (NEGATIVE); PH,URINE 7.5 (5.0-8.0); PROTEIN,URINE NEGATIVE (NEGATIVE); UGLUCOSE 500 MG/DL mg/dL (NEGATIVE); UROBILINOGEN,URINE 0.2 EU/dL (0.2)
--- NOTE | 2021-11-25 12:20 | NUR ---
RN NOTE Patient refused Insulin. Blood glucose is 145. Will continue to monitor patient.
--- NOTE | 2021-11-25 17:03 | NUR ---
RN NOTE Patient's IV access on RAC got infiltrated. IV access removed. Re-insertion attempted 4x, unsuccessful. Will endorse to shift supervisor if they can do re-insertion.
[2021-11-25] MEDS ORDERED: MAGNESIUM HYDROXIDE 30 ML UDC PO PRN (18:00)
--- NOTE | 2021-11-25 19:33 | NUR ---
MS/RN NOTE PT AWAKE IN ROOM, SITTING UP AT EDGE OF BED. A/OX3. DENIES ANY PAIN AT THIS TIME. RESPIRATIONS EVEN/UNLABORED. SHE DENIES SOB, REPORTS BEEN ABLE TO AMBULATE WITH NO SOB. PT IN NO ACUTE DISTRESS. SAFETY MEASURES IN PLACE, CALL LIGHT WITHIN REACH. WILL CONT TO MONITOR.
--- NOTE | 2021-11-25 19:35 | NUR ---
MS RN CLOSING NOTE Patient sitting in bed. A/O x 3, Czech speaking. Stable on room air, breathing evenly and unlabored. No SOB or s/s of distress noted. No IV access. All needs attended to. Due meds given. Milk of magnesia given as PRN for constipation at 1807. Safety precautions in place: bed in low, locked position; siderails up x 2; call light within reach. Will endorse to retail shift manager nurse for MEGAN.
[2021-11-25 20:00] VITALS: BP 92/50
--- NOTE | 2021-11-25 20:50 | NUR ---
RN NOTE SEEN BY RT. SPO2 92% ON RA. PLACED PT ON O2 @2LPM VIA NC. NO SOB NOTED.
[2021-11-25] MEDS: ATORVASTATIN 40 MG TABLET PO SCH (21:03)
[2021-11-25] MEDS: ASPIRIN 81 MG TAB.CHEW PO SCH (21:03)
[2021-11-25] MEDS: TRAZODONE 50 MG TABLET PO SCH (21:03)
[2021-11-25] MEDS: CLOPIDOGREL BISULFATE 75 MG TABLET PO SCH (21:03)
[2021-11-26] MEDS: ALBUTEROL FS 2.5 MG/0.5 ML VIAL.NEB NEB SCH ×2 (01:30→07:35)
[2021-11-26] MEDS: IPRATROPIUM NEB FS 0.5 MG/2.5 ML AMPUL.NEB IH SCH ×4 (01:30→20:57)
[2021-11-26] MEDS: BLOOD SUGAR DIAGNOSTIC 1 EACH STRIP VI SCH ×4 (06:21→22:04)
--- NOTE | 2021-11-26 06:50 | NUR ---
RN NOTE PT RESTING IN BED, EASILY AROUSABLE TO STIMULI. DENIES ANY PAIN. RESPIRATIONS EVEN/UNLABORED. ON O2 @2LPM VIA NC. PT SLEPT WELL DURING THE NIGHT. NO ACUTE DISTRESS. SAFETY MEASURES MAINTAINED.
[2021-11-26 06:53] LABS: BASOPHILS % (AUTO) 0.9 % (0.0-2.0); HEMATOCRIT 31 % (33-45); HEMOGLOBIN 10.4 g/dL (11.5-14.8); LYMPHOCYTES # (AUTO) 1.7 K/uL (0.8-4.8); LYMPHOCYTES % (AUTO) 31.4 % (20.0-44.0); MEAN CORPUSCULAR HGB CONC 33 g/dl (31.0-36.0); MEAN CORPUSCULAR VOLUME 81 fL (82-100); MONOCYTES # (AUTO) 0.6 K/uL (0.1-1.30); MONOCYTES % (AUTO) 11.3 % (2.0-12.0); NEUTROPHILS # (AUTO) 2.7 K/uL (1.8-8.9); NEUTROPHILS % (AUTO) 51.4 % (43.0-81.0); PLATELET COUNT (AUTO) 193 K/uL (150-450); RED BLOOD CELL COUNT(AUTO) 3.89 MIL/uL (4.0-5.2); WHITE BLOOD COUNT (AUTO) 5.3 K/uL (4.3-11.0)
[2021-11-26 07:01] LABS: ALANINE AMINOTRANSFERASE 26 U/L (12-78); ALBUMIN 3.5 g/dL (3.4-5.0); ALKALINE PHOSPHATASE 53 U/L (46-116); ASPARTATE AMINOTRANSFERASE 27 U/L (15-37); BILIRUBIN,TOTAL 0.5 mg/dL (0.2-1.0); CALCIUM, SERUM 8.7 mg/dL (8.5-10.1); CARBON DIOXIDE 33 mmol/L (21-32); CHLORIDE 106 mmol/L (98-107); CREATININE 1.6 mg/dL (0.6-1.3); GLUCOSE 98 mg/dL (74-106); MAGNESIUM 2.8 mg/dL (1.8-2.4); PHOSPHORUS 6.4 mg/dL (2.5-4.9); POTASSIUM 3.9 mmol/L (3.5-5.1); SODIUM SERUM 144 mmol/L (136-145); TOTAL PROTEIN, SERUM 6.8 g/dL (6.4-8.2); UREA NITROGEN, BLOOD 35 mg/dL (7-18)
--- NOTE | 2021-11-26 07:20 | NUR ---
MS RN OPENING NOTES RECEIVED PATIENT AWAKE IN BED. PALAUAN SPEAKER. ABLE TO MAKE NEEDS KNOWN. NO PAIN NOTED. NO SOB NOTED. NO RESPIRATORY DISTRESS NOTED. ON O2 INHALATION VIA NASAL CANNULA AT 2 L/MIN. TOLERATING WELL. NO IV ACCESS PER PREVIOUS SHIFT NURSE. ALL SAFETY MEASURES IN PLACE. BED LOCKED IN THE LOWEST POSITION. CALL LIGHT AND TABLE IN EASY REACH. ABLE TO AMBULATE WITH WALKER . WILL CONTINUE TO MONITOR.
[2021-11-26 08:00] VITALS: BP 94/43
[2021-11-26] MEDS ORDERED: FUROSEMIDE 100 MG/10 ML VIAL IV SCH (08:30)
[2021-11-26] MEDS: METOPROLOL SUCCINATE 50 MG TAB.SR.24H PO SCH (09:00)
[2021-11-26] MEDS: METOLAZONE 2.5 MG TABLET PO SCH (09:33)
[2021-11-26] MEDS: MAGNESIUM OXIDE 400 MG TABLET PO SCH ×2 (09:34→16:04)
[2021-11-26] MEDS: POTASSIUM CHLORIDE 20 MEQ TAB.PRT.SR PO SCH (09:34)
[2021-11-26] MEDS: VALSARTAN PO SCH ×2 (09:36→16:04)
[2021-11-26] MEDS: EMPAGLIFLOZIN 25 MG TABLET PO SCH (09:36)
[2021-11-26] MEDS: SACUBITRIL PO SCH ×2 (09:36→16:04)
[2021-11-26] MEDS: MUPIROCIN OINT 2% 22 GM TUBE NS SCH ×2 (09:40→21:59)
[2021-11-26 11:00] LABS: ABG BASE EXCESS 4.9 mmol/L; ABG OXYGEN SATURATION 95.1 % (92.0-98.5); ABG PCO2 45.3 mmHg (35.0-45.0); ABG PH 7.435 (7.350-7.450); ABG PO2 80.3 mmHg (75.0-100.0); AaDO2 65.9 mmHg; COHb 0.6 % (0.5-1.5); MetHb 0.3 % (0.0-1.5); O2Hb 94.2 % (94.0-97.0); SITE, ABG Right Brachial; VENT MODE, BG 2 L N.C
--- NOTE | 2021-11-26 12:33 | NUR ---
RN NOTES HELD METOPROLOL [address] DONOHUE ORDER AT 0900 AM. BLOOD PRESSURE 99/45, P=60
--- NOTE | 2021-11-26 12:34 | NUR ---
RN NOTES METOPROLOL [address] DONOHUE ORDER AT 1233.
[2021-11-26] MEDS: ACETAMINOPHEN 325 MG TABLET PO PRN (13:06)
[2021-11-26 16:00] VITALS: BP 100/40
[2021-11-26] MEDS: FUROSEMIDE 100 MG/10 ML VIAL IV SCH ×2 (16:04→21:57)
--- NOTE | 2021-11-26 18:32 | NUR ---
MS RN CLOSING NOTES PATIENT AWAKE IN BED. SLOVAK SPEAKER. ABLE TO MAKE NEEDS KNOWN. NO PAIN NOTED. NO SOB NOTED. NO RESPIRATORY DISTRESS NOTED. ON O2 INHALATION VIA NASAL CANNULA AT 2 L/MIN. O2 SAT NOTED 97%. TOLERATING WELL.STUART MIDLINE ACCESS G#18 INTACT. ALL DUE MEDS GIVEN ORDERED. ALL SAFETY MEASURES IN PLACE. BED LOCKED IN THE LOWEST POSITION. CALL LIGHT AND TABLE IN EASY REACH. ABLE TO AMBULATE WITH WALKER TO THE BATHROOM. WILL ENDORSE FOR MEGAN.
--- NOTE | 2021-11-26 19:30 | NUR ---
MS RN OPENING NOTES RECEIVED PT SITTING ON CHAIR W/ DAUGHTER ON BEDSIDE. A/O X3. SLOVENIAN/NAURUAN SPEAKING. NOT IN APPARENT DISTRESS. BREATHING EVEN AND NON-LABORED ON ROOM AIR. DENIES PAIN AT THIS TIME. NO SOB OR WHEN PT AMBULATED IN THE HALLWAY PER AM NURSE. HAS RIGHT UPPER ARM MIDLINE #18G AND SALINE LOCKED. NO S/S OF INFILTRATION NOTED. SAFETY PRECAUTIONS IN PLACE. WILL CONTINUE PLAN OF CARE.
[2021-11-26 20:00] VITALS: BP 103/40
[2021-11-26] MEDS: TRAZODONE 50 MG TABLET PO SCH (22:04)
[2021-11-26] MEDS: ATORVASTATIN 40 MG TABLET PO SCH (22:04)
[2021-11-26] MEDS: ASPIRIN 81 MG TAB.CHEW PO SCH (22:04)
[2021-11-26] MEDS: CLOPIDOGREL BISULFATE 75 MG TABLET PO SCH (22:04)
[2021-11-27] MEDS: FUROSEMIDE 100 MG/10 ML VIAL IV SCH ×4 (01:12→16:11)
[2021-11-27] MEDS: IPRATROPIUM NEB FS 0.5 MG/2.5 ML AMPUL.NEB IH SCH ×3 (01:49→14:37)
--- NOTE | 2021-11-27 07:00 | NUR ---
MS RN CLOSING NOTES PT LYING IN BED ASLEEP. EASY TO AROUSE. A/O X3. PASHTO/MAURITANIAN SPEAKING. NO SOB OR NOTED, ON O2 AT 2LPM VIA NASAL CANULA. AFEBRILE. NOT IN ACUTE DISTRESS. NO C/O PAIN OR DISCOMFORT. HAS RIGHT UPPER ARM MIDLINE #18G AND SALINE LOCKED. INTACT, PATENT AND FLUSHING. ALL NEEDS ATTENDED. SAFETY MEASURES IN PLACE: BED LOW AND LOCKED, SIDE RAILS UP X2, CALL LIGHT WITHIN REACH.
--- NOTE | 2021-11-27 07:11 | NUR ---
MS RN OPENING NOTES RECEIVED PATIENT AWAKE IN BED. BELARUSIAN SPEAKER. ABLE TO MAKE NEEDS KNOWN. NO PAIN NOTED. NO SOB NOTED. NO RESPIRATORY DISTRESS NOTED. ON O2 INHALATION VIA NASAL CANNULA AT 2 L/MIN. TOLERATING WELL. KELSEY MID LINE G # 18 INTACT AND PATENT. ALL SAFETY MEASURES IN PLACE. BED LOCKED IN THE LOWEST POSITION. CALL LIGHT AND TABLE IN EASY REACH. ABLE TO AMBULATE WITH WALKER . WILL CONTINUE TO MONITOR.
[2021-11-27 07:14] LABS: ALANINE AMINOTRANSFERASE 26 U/L (12-78); ALKALINE PHOSPHATASE 61 U/L (46-116); ASPARTATE AMINOTRANSFERASE 26 U/L (15-37); BILIRUBIN,TOTAL 0.5 mg/dL (0.2-1.0); CALCIUM, SERUM 9.4 mg/dL (8.5-10.1); CARBON DIOXIDE 34 mmol/L (21-32); CHLORIDE 100 mmol/L (98-107); CREATININE 1.6 mg/dL (0.6-1.3); GLUCOSE 126 mg/dL (74-106); PHOSPHORUS 6.9 mg/dL (2.5-4.9); POTASSIUM 3.7 mmol/L (3.5-5.1); SODIUM SERUM 141 mmol/L (136-145); TOTAL PROTEIN, SERUM 7.6 g/dL (6.4-8.2); UREA NITROGEN, BLOOD 41 mg/dL (7-18)
[2021-11-27 08:00] VITALS: BP 94/54
[2021-11-27 08:37] LABS: BASOPHILS # (AUTO) 0.1 K/uL (0.0-0.2); BASOPHILS % (AUTO) 1.1 % (0.0-2.0); EOSINOPHILS % (AUTO) 6.2 % (0.0-6.0); HEMATOCRIT 33 % (33-45); HEMOGLOBIN 10.9 g/dL (11.5-14.8); LYMPHOCYTES # (AUTO) 1.4 K/uL (0.8-4.8); LYMPHOCYTES % (AUTO) 26.7 % (20.0-44.0); MEAN CORPUSCULAR HGB CONC 33 g/dl (31.0-36.0); MEAN CORPUSCULAR VOLUME 80 fL (82-100); MONOCYTES # (AUTO) 0.6 K/uL (0.1-1.30); MONOCYTES % (AUTO) 11.7 % (2.0-12.0); NEUTROPHILS # (AUTO) 2.9 K/uL (1.8-8.9); NEUTROPHILS % (AUTO) 54.3 % (43.0-81.0); PLATELET COUNT (AUTO) 194 K/uL (150-450); RED BLOOD CELL COUNT(AUTO) 4.17 MIL/uL (4.0-5.2); WHITE BLOOD COUNT (AUTO) 5.3 K/uL (4.3-11.0)
[2021-11-27] MEDS: MAGNESIUM OXIDE 400 MG TABLET PO SCH ×2 (09:41→16:10)
[2021-11-27] MEDS: METOLAZONE 2.5 MG TABLET PO SCH (09:41)
[2021-11-27] MEDS: POTASSIUM CHLORIDE 20 MEQ TAB.PRT.SR PO SCH ×4 (09:41→11:44)
[2021-11-27] MEDS: BLOOD SUGAR DIAGNOSTIC 1 EACH STRIP VI SCH ×2 (09:42→11:45)
[2021-11-27] MEDS: EMPAGLIFLOZIN 25 MG TABLET PO SCH (09:45)
[2021-11-27] MEDS: VALSARTAN PO SCH ×2 (09:45→16:11)
[2021-11-27] MEDS: SACUBITRIL PO SCH ×2 (09:45→16:11)
[2021-11-27] MEDS: MUPIROCIN OINT 2% 22 GM TUBE NS SCH (09:45)
[2021-11-27] MEDS: ACETAMINOPHEN 325 MG TABLET PO PRN (10:47)
[2021-11-27] MEDS ORDERED: METO2.5T7 PO (13:35)
[2021-11-27 16:00] VITALS: BP 92/66
--- NOTE | 2021-11-27 16:40 | NUR ---
LEAD DATA ENTRY OPERATOR NOTES DISCHARGE PATIENT IN STABLE CONDITION. NO PAIN NOTED. NO SOB NOTED. NO DISTRESS NOTED. VITAL SIGNS IN STABLE CONDITION. ALL THE BELONGINGS ACCOUNTED AND SIGNED FOR. ALL THE DISCHARGE INSTRUCTIONS GIVEN TO THE PATIENT. MID LINE REMOVED COVERED WITH DRY DRESSING. THE TIP NOTED INTACT. NO BLEEDING NOTED. ID BAND REMOVED. RICCI THE POWER LINE LINEMAN WHEELED THE PATIENT TO THE LOBBY. PATIENT LEFT HOSPITAL IN STABLE CONDITION. REMIND PATIENT TO FOLLOW WITH DR BELL IN 4 WEEKS AND PCP IN 2 WEEKS. VERBALIZED UNDERSTANDING IN CITIZEN OF [place] AND [place] LANGUAGE. MD AND CHARGE NURSE AWARE OF THE DISCHARGE.
== END 2021-11-27 17:00 | disposition home health service (06) | DRG 291 ==
LOC: ER 19:27 → TELE 22:09 → MED 11-25 11:56
PROVIDERS: ADMIT Internal Medicine; ATTEND Internal Medicine
PROC: 05HB33Z Insertion of Infusion Device into Right Basilic Vein, Percutaneous Approach (ICD-10-PCS; principal; 2021-11-26)
DX: I13.0 Hypertensive heart and chronic kidney disease with heart failure and stage 1 through stage 4 chronic kidney disease, or unspecified chronic kidney disease (principal); J96.21 Acute and chronic respiratory failure with hypoxia; N17.0 Acute kidney failure with tubular necrosis; I50.43 Acute on chronic combined systolic (congestive) and diastolic (congestive) heart failure; E66.2 Morbid (severe) obesity with alveolar hypoventilation; J98.11 Atelectasis; I48.91 Unspecified atrial fibrillation; Z20.822 Contact with and (suspected) exposure to COVID-19; E11.22 Type 2 diabetes mellitus with diabetic chronic kidney disease; E11.65 Type 2 diabetes mellitus with hyperglycemia; Z95.1 Presence of aortocoronary bypass graft; Z95.5 Presence of coronary angioplasty implant and graft; I25.10 Atherosclerotic heart disease of native coronary artery without angina pectoris; Z86.79 Personal history of other diseases of the circulatory system; Z79.84 Long term (current) use of oral hypoglycemic drugs; Z79.899 Other long term (current) drug therapy; Z79.02 Long term (current) use of antithrombotics/antiplatelets; Z79.82 Long term (current) use of aspirin; Z79.01 Long term (current) use of anticoagulants; N18.9 Chronic kidney disease, unspecified; Z95.2 Presence of prosthetic heart valve; I27.20 Pulmonary hypertension, unspecified; D50.9 Iron deficiency anemia, unspecified; Z68.38 Body mass index [BMI] 38.0-38.9, adult; E03.9 Hypothyroidism, unspecified; I08.0 Rheumatic disorders of both mitral and aortic valves; I25.5 Ischemic cardiomyopathy
CPT/HCPCS: 36415; 36600; 71045-TC; 76770-TC; 80048-TC; 80053-TC; 80076-TC; 82570-TC; 82803-TC; 82962-TC; 83605-TC; 83735-TC; 83880; 84100-TC; 84300-TC; 84484-TC; 85025-TC; 85730-TC; 87081-TC; 93307-TC; 94799-TC; C9803; G0378; J1940

== ENCOUNTER 2025-05-08 10:59 | Outpatient (CLI) | payer MEDICARE, OTHER ==
[~2025-05-08 10:59] MED LIST changes: -AMIO200T5 PO; -APIX2.5T PO; +ASPI-1169 PO; -ATOR40TA PO; +CLOP75TA15 PO; +MAGN400T8 PO; +METO-357 PO; +METO2.5T7 PO; -METO25TA4 PO; -OLME1TAB19 PO; +ROSU10TA2 PO; +SITA1TAB2 PO; +SPIR50TA5 PO; +TRAZ-182 PO
== END 2025-05-08 23:59 | disposition home or self-care (01) ==
LOC: MSC 10:59
PROVIDERS: ATTEND Internal Medicine
DX: I13.0 Hypertensive heart and chronic kidney disease with heart failure and stage 1 through stage 4 chronic kidney disease, or unspecified chronic kidney disease (principal); E11.22 Type 2 diabetes mellitus with diabetic chronic kidney disease; N18.9 Chronic kidney disease, unspecified; I50.20 Unspecified systolic (congestive) heart failure; N17.9 Acute kidney failure, unspecified; E83.9 Disorder of mineral metabolism, unspecified; M89.9 Disorder of bone, unspecified; I25.10 Atherosclerotic heart disease of native coronary artery without angina pectoris; Z95.5 Presence of coronary angioplasty implant and graft; E78.5 Hyperlipidemia, unspecified; I49.9 Cardiac arrhythmia, unspecified; E03.9 Hypothyroidism, unspecified; E66.9 Obesity, unspecified